=== PATIENT | female | born 1975 ===

== ENCOUNTER 2020-07-12 12:46 | Emergency (ER) | payer SELFPAY ==
[~2020-07-12] VITALS: Ht 167.6 cm; Wt 65.9 kg
[2020-07-12 13:17] VITALS: BP 109/65; Ht 167.6 cm; Wt 65.9 kg
[2020-07-12] MEDS ORDERED: DICLOFENAC SODI50 MG PO (17:36)
[2020-07-12] MEDS ORDERED: PENICILLIN V P500 MG PO (17:36)
== END 2020-07-12 18:05 | disposition home or self-care (01) ==
LOC: D.ER 12:46
DX: K08.89 Other specified disorders of teeth and supporting structures (principal)